=== PATIENT | female | born 1955 | race Caucasian/White ===

== ENCOUNTER 2016-06-23 13:53 | Emergency (ER) | payer OTHER ==
[~2016-06-23] VITALS: Ht 165.1 cm; Wt 78.2 kg
--- NOTE | 2016-06-23 13:59 | ED.REPORT ---
HPI-Extremity Problem Lower Date of Service Jun 23, 2016 ED Provider: Annette Robledo MD This patient is a 60 year old female with a history of chronic congestive heart failure presenting to the ED complaining of left ankle injury from slipping on ice just [employer]. She states that she did not sustain any injuries to her head and denies LOC, neck pain and any other injury. She was recently hospitalized at [facility] for pneumonia and hypoxia. She is currently on Xarelto due to a recent PE. She last ate 0830 this AM. Nursing Notes Stated Complaint: LEFT LEG INJURY Chief Complaint: Extremity Trauma Nursing Notes Reviewed: Yes Allergies: Coded Allergies: sumatriptan (Verified Allergy, Severe, anxiety, 06/23/16) Scheduled Atorvastatin (Lipitor) 10 Mg Tab Unknown Dose PO DAILY Bupropion ER (Wellbutrin SR) 100 Mg Tablet.er Unknown Dose PO BID Cholecalciferol (Vitamin D3) (Vitamin D) 1,000 Unit Tablet 2,000 UNIT PO DAILY Digoxin (Digoxin) 0.125 Mg/2.5 Ml Solution Unknown Dose PO DAILY Gabapentin (Gabapentin) 300 Mg Capsule 300 MG PO DAILY Spironolactone (Spironolactone) 25 Mg Tablet 12.5 MG PO DAILY Scheduled PRN Torsemide (Torsemide) 20 Mg Tablet 40 MG PO BID PRN PRN For Chest Pain oxyCODONE-Acetaminophen 7.5-325 mg (oxyCODONE-Acetaminophen 7.5-325 mg) 1 Each Tablet 1 TAB PO Q4H PRN PRN For Pain Miscellaneous Medications ([levamere]) ([humalog]) ([azithromycin]) ([merivetrique]) Ascorbic Acid (Vitamin C) 100 Mg Tablet Unknown Dose PO Ferrous Sulfate, Dried (Iron) 159 Mg Tablet.er Unknown Dose PO Rivaroxaban (Xarelto) 1 Each Tab.ds.pk Unknown Dose PO Sodium Oxybate (Xyrem) 500 Mg/1 Ml Solution Unknown Dose PO Ubidecarenone (Co Q-10) 10 Mg Capsule Unknown Dose PO General Time Seen by MD: 13:58 Chief Complaint Ankle injury left Hx Obtained From: Patient Arrived By: Wheelchair Onset Occurred: Just prior to arrival Symptom Duration: Since onset Caused by: Slipped (On ice) Location: : Ankle left Quality: Painful Severity: Current: Severe Severity: Maximum: Severe Pertinent Negative: Pt denies other symptoms Immunizations: Tetanus up to date Recent Healthcare: Recent doctor visit, Recent hospitalization Similar Sx Previous: No Past Medical History Past Medical History Chronic congestive heart failure Pneumonia PE on Xarelto Asthma Reports: Diabetes mellitus Past Surgical History Reports: Smoking History Never Smoker Social History Alcohol Use: Denies alcohol use Drug Use: Denies drug use Ambulatory Status Independent Review of Systems Basic Review of Systems Eyes: Vision NL, No discharge ENT: Hearing NL, No pain, No nasal congestion, No pharyngeal pain Respiratory: No shortness of breath, No cough, No wheeze Cardiovascular: No chest pain Psychiatric: Normal thought content Constitutional: Denies: Fever Musculoskeletal: Reports: Extremity pain (Left ankle), Extremity swelling ( Left ankle), Denies: Back pain, Neck pain Skin: Denies Diaphoresis, Denies Rash Neurologic: Denies: Change LOC, Headache Complete sys rev & neg: except as marked. Physical Exam Initial Vital Signs Vital Signs (First) Date Time Temp Pulse Resp B/P Pulse Ox O2 Delivery O2 Flow Rate FiO2 06/23/16 14:05 36.1 67 16 99 Room Air 06/23/16 16:17 137/61 Initial VS: Reviewed, Vital signs normal General/Constitutional: Well-developed, Well-nourished Head / Eyes: Atraumatic, Normocephalic, PERRL ENT: Mucous membranes moist, Conjunctiva normal, No scleral icterus Neck: Supple, Non-tender, Full range of motion Cardiovascular: Regular rate & rhythm, Heart sounds normal, Intact distal pulses Abdomen / GI: Soft, Non-tender Upper Extremities: Vascular intact, Neuro intact Skin: Warm, Dry, No cyanosis Neurologic: Alert, Oriented, Nonfocal Psychiatric: Mood/affect normal, Behavior normal, Normal thought content Ankle / Foot: Neurologic intact, Vascular intact Left Ankle: Positive: Deformity present (medially), Swelling present..., Tenderness present... (Medially) Normal pedal pulse Respiratory / Chest: No respiratory distress Rales / Rhonchi: Positive: Rhonchi diffuse (Scattered) Additional Physical Exam: C-spine non tender Interpretation & Diagnostics Lab Results Interpretation Result Diagram: 06/23/16 1410 06/23/16 1410 Test 06/23/16 14:10 White Blood Count 15.2th/mm3 (3.8-10.1) Red Blood Count 3.89mil/mm3 (3.90-5.20) Hemoglobin 11.3g/dL (12.0-15.6) Hematocrit 35.0% (35.0-46.0) Mean Corpuscular Volume 90.0fL (81-100) Mean Corpuscular Hemoglobin 29.0pg (27.0-35.0) Mean Corpuscular Hemoglobin Concent 32.3% (32.0-37.0) Red Cell Distribution Width 14.0% (12.3-15.4) Platelet Count 188bil/L (150-400) Neutrophils (%) (Auto) 72.9% (40-74) Lymphocytes (%) (Auto) 14.6% (14-46) Monocytes (%) (Auto) 8.0% (4-12) Eosinophils (%) (Auto) 2.8% (0-5) Basophils (%) (Auto) 0.2% (0-3) Prothrombin Time 14.4sec (8.1-12.5) Prothromb Time International Ratio 1.34ratio Sodium Level 142mEq/L (134-144) Potassium Level 3.6mEq/L (3.5-5.2) Chloride Level 95mEq/L (97-108) Carbon Dioxide Level 35mmol/L (18-29) Blood Urea Nitrogen 51mg/dL (6-24) Creatinine 1.50mg/dL (0.57-1.00) Estimat Glomerular Filtration Rate 51mL/min (>59) Glucose Level 71mg/dL (60-99) Calcium Level 9.8mg/dL (8.5-10.1) Magnesium Level 2.2mg/dL (1.6-2.6) X-Ray Chest Interpretation Chest Xray Interpretation: IMPRESSION: No acute disease is seen in the supine portable chest. Dictated by: Haris Ladd M.D. on 06/23/2016 at 15:15 View: Portable, 1 view Interpretation / Wet Read by: Interpret - Radiologist X-Ray Interpretation Xray Interpretation: Soft tissues: No tibiotalar joint effusion. Achilles tendon appears normal. IMPRESSION: Bimalleolar fracture dislocation. Dictated by: Haris Ladd M.D. on 06/23/2016 at 15:15 X-Ray Ordered: Ankle left Interpretation / Wet Read by: Interpret - Radiologist Xray Interpretation: IMPRESSION: Partial reduction of the bimalleolar fracture dislocation. The fiberglass splint is around the ankle. Dictated by: Haris Ladd M.D. on 06/23/2016 at 16:45 X-Ray Ordered: Ankle left Interpretation / Wet Read by: Interpret - Radiologist Procedures Proced Mod Sedation/Analgesia Time: 15:51 Procedure Performed by: ED physician Sedation Time: 0 - 15 min Consent / Setup: Informed consent provided, Consent from patient, Time-out performed, Hand hygiene observed, Position supine Indication: Ankle reduction Preparation: hospital monitor applied, Pulse oximeter applied, Constant attendance, IV access established, Eval last meal time, Supplemental oxygen, Procedure explained, Suction available, End tidal CO2 mon applied VS Prior to Procedure: All vital signs normal Mallampati: Class & Anatomy: 3 hard pal/base uvula CVS/Resp Exam: Normal heart sounds, Rhonchi Neuro Exam: Alert, Responsive Sedation: Sedation: Propofol ASA Classification: 2 mild systemic disease Response During Procedure: Handled secretions adeq, Maintained airway well, Oxygenation stable, Sedation appropriate, Vital signs stable Complications During/After: None Reversal: None required Mental Status After Procedure: Alert, Oriented X3 Post-Procedure: Alert prior to discharge, Ambulatory with assist, Pt rtn pre- proc baseline, Vital signs normal Attestation: I performed procedure, I performed sedation Reduction Dislocated Ankle Time: 15:49 Procedure Performed by: ED physician Consent / Setup: Informed consent provided, Consent from patient, Time-out performed, Oxygen administered, Pulse oximeter applied, hospital monitor applied , Hand hygiene observed Procedural Sedation/Analgesia: Sedation: Propofol Which Ankle and Technique: Left ankle Neurovascular: Intact pre-procedure, Intact post-procedure Post-Procedure / Complications: Reduced per examination, Procedure successful, Condition improved, Tolerated procedure well, Patient stable Splint Application - Fx Mgt Time: 15:54 Procedure Performed by: ED physician Precise Anatomic Location: Left ankle stirrup splint Definitive Fracture Care: Splint Post-Procedure / Complications: Cap refill normal, Post splint vascular nl, Post splint neuro nl, Condition improved, Tolerated procedure well, Patient stable Re-Eval/Medical Decision Med Decision/Clinical Course This patient presented after a fall accident left ankle injury. On my initial questioning and exam she said she did not hit her head and she did not have any pain with palpation of her scalp or spine. Later to the nurse it was stated that she hit her head this was by the bystanders but again she had no findings on examination. She does have an ankle injury that was partially reduced here in the emergency department. Spoke with the on-call orthopedist and he will see her later this week. Patient is on blood thinners but she did not have significant swelling of her ankle, she was observed here without any new symptoms. The patient did have an episode of hypoglycemia for which she was given juice and then some food to eat. She was unable to walk with crutches but did fine with a walker. Source of Hx: Old records Re-Evaluation/Progress #1: Time of Eval: 14:15 Patient Status: Condition unchanged Re-Evaluation/Progress Note: Pt. states her last PO was 0830. Re-Evaluation/Progress #2: Time of Eval: 14:29 Patient Status: Condition unchanged Re-Evaluation/Progress Note: Pt. now states that she sustained an injury to her head although denied it during initial exam. Re-Evaluation/Progress #3: Time of Eval: 15:13 Patient Status: Condition unchanged Re-Evaluation/Progress Note: Pt. was told that she will need a splint until she can get surgery somewhere else. Procedual sedation form will be signed for putting in splint until she can see ortho surgeon tomorrow in Dr. Valenzuela's office. Re-Evaluation/Progress #4: Time of Eval: 16:54 Re-Evaluation/Progress Note: Pt became hypoglycemic. Pt is eating, then plan for d/c home with follow up. Re-Evaluation/Progress #5: Time of Eval: 17:28 Re-Evaluation/Progress Note: BGL now 119. Pt awake, alert and back to baseline. Pain is controlled. Discussed home pain management and for d/c and f/u. All questions addressed. Consultation : Referral / Consult Name: Eduar Valenzuela MD Consulted With: Orthopedic Call Returned at: 15:26 [employer] Tender: Will see in office, Agrees with eval, Agrees with plan Note: Dr. Valenzuela will see pt. in office tomorrow to discuss possible surgery. Counseled Regarding: Diagnosis, Lab results, Need for follow-up, When/why to return to ED Discharge & Departure Impression: Primary Impression: Bimalleolar fracture of left ankle Encounter type: initial encounter Fracture type: closed Qualified Code: S82.842A - Displaced bimalleolar fracture of left lower leg, initial encounter for closed fracture Disposition: Home Discharge Condition All VS Reviewed: Yes Condition: Stable Patient Instructions: Ankle Dislocation (ED), Ankle Fracture (ED), Splint Care (ED) Additional Instructions: Thank you for entrusting your care with us today. The orthopedic surgeon, Dr. Valenzuela, will see you in his office. Call tomorrow to schedule an appointment for sometime this week. You can take Percocet as directed for severe pain. You should take this with food. Use this sparingly as it can cause addiction. Make sure to drink plenty of water to prevent constipation. Referrals: Eduar Valenzuela MD Attestation Portions of this note were transcribed by Genesis Reynolds and Marcela Smith. I, Dr. Robledo personally performed the history, physical exam and medical decision- making; I reviewed and confirmed the accuracy of the information in the transcribed note. Signed by: Genesis Reynolds and Jessica Perkins, 06/23/2016 and 1728. copies to: Eduar Valenzuela MD, Jena M MD Jun 23, 2016 13:59 Kristen Smith [Marcela] Jun 23, 2016 14:11 Genesis Reynolds Jun 23, 2016 15:08
[2016-06-23 14:05] VITALS: PULSE 67; RESP 16; O2SAT 99
[2016-06-23 14:26] LABS: BASOPHILS % (AUTO) 0.2 % (0-3); EOSINOPHILS % (AUTO) 2.8 % (0-5); NEUTROPHILS % (AUTO) 72.9 % (40-74); Platelet Count 188 bil/L (150-400)
[2016-06-23] MEDS: HYDROmorphone 0.5 mg/0.5 mL iSecure Syringe IVPUSH PRN ×4 (14:28→18:25)
[2016-06-23 14:47] LABS: INR 1.34 ratio
[2016-06-23 14:54] LABS: Magnesium 2.2 mg/dL (1.6-2.6)
--- NOTE | 2016-06-23 15:16 | DRSVH ---
PROCEDURE: X-RAY CHEST ONE VIEW, PORTABLE ([id number]) INDICATIONS: recent pneumonia TECHNIQUE: One view of the chest was acquired. COMPARISON: None. FINDINGS: Surgical changes and devices: None. Lungs and pleura: No pleural effusions or pneumothorax. Lungs are clear. Mediastinum: Mediastinal contours appear normal. Heart size is normal. Bones and chest wall: No suspicious bony lesions. Overlying soft tissues appear unremarkable. IMPRESSION: No acute disease is seen in the supine portable chest. Dictated by: Haris Ladd M.D. on 06/23/2016 at 15:15 Approved by: Haris Ladd M.D. on 06/23/2016 at 15:15
--- NOTE | 2016-06-23 15:16 | DRSVH ---
PROCEDURE: X-RAY LEFT ANKLE, MINIMUM THREE VIEWS ([id number]) INDICATIONS: recent pneumonia TECHNIQUE: 3 views of the ankle were acquired. COMPARISON: None. FINDINGS: Bones: There is a bimalleolar fracture dislocation. A fracture line extends from the plafond up obliq uely through the fibula with a syndesmotic ligament thought to be intact. The distal fibular fragment along the distal lateral fibula as well as the talus are displaced nearly the width of the talus lat erally. Small fragment of bone thought to be from an avulsed ligaments are present overlying the medial aspec t of the enlarged joint space. Differential would be artifact from the overlying clothing. Soft tissues: No tibiotalar joint effusion. Achilles tendon appears normal. IMPRESSION: Bimalleolar fracture dislocation. Dictated by: Haris Ladd M.D. on 06/23/2016 at 15:14 Approved by: Haris Ladd M.D. on 06/23/2016 at 15:14
[2016-06-23] MEDS ORDERED: Propofol 10 mg/mL 20 mL Inj IVPUSH ONE (15:25)
[2016-06-23 16:17] VITALS: BP 137/61; PULSE 94; RESP 14; O2SAT 95
[2016-06-23] MEDS ORDERED: 0.9% Sodium Chloride 500 ML IV ONE (16:20)
--- NOTE | 2016-06-23 16:47 | DRSVH ---
PROCEDURE: X-RAY LEFT ANKLE, MINIMUM THREE VIEWS ([id number]) INDICATIONS: post reduction TECHNIQUE: 3 views of the ankle were acquired. COMPARISON: [facility], CR, XR ANKLE 3VW LT, 06/23/2016, 14:28. FINDINGS: Bones: The bimalleolar fracture dislocation has been partially but incompletely reduced. There still lateral displacement of the distal fibular fragment and the talus with slight posterior displacement of these structures as well. Soft tissues: No tibiotalar joint effusion. Achilles tendon appears normal. IMPRESSION: Partial reduction of the bimalleolar fracture dislocation. The fiberglass splint is around the ankle. Dictated by: Haris Ladd M.D. on 06/23/2016 at 16:45 Approved by: Haris Ladd M.D. on 06/23/2016 at 16:45
[2016-06-23] MEDS ORDERED: TORS20TA3 PO (16:59)
[2016-06-23] MEDS ORDERED: SPIR25TA3 PO (16:59)
[2016-06-23] MEDS ORDERED: DIGO0.12 PO (16:59)
[2016-06-23] MEDS ORDERED: FERR159T2 PO (16:59)
[2016-06-23] MEDS ORDERED: humalog (16:59)
[2016-06-23] MEDS ORDERED: RIVA1TAB PO (16:59)
[2016-06-23] MEDS ORDERED: SODI500S4 PO (16:59)
[2016-06-23] MEDS ORDERED: CHOL100043 PO (16:59)
[2016-06-23] MEDS ORDERED: [UNRECOGNIZED DRUG - OTHER] (16:59)
[2016-06-23] MEDS ORDERED: BUPR100T7 PO (16:59)
[2016-06-23] MEDS ORDERED: GABA-502 PO (16:59)
[2016-06-23] MEDS ORDERED: UBID10CA4 PO (16:59)
[2016-06-23] MEDS ORDERED: ASCO100T11 PO (16:59)
[2016-06-23] MEDS ORDERED: [UNRECOGNIZED DRUG - OTHER] (16:59)
[2016-06-23] MEDS ORDERED: ATRV10T PO (16:59)
[2016-06-23] MEDS ORDERED: azithromycin (16:59)
[2016-06-23] MEDS ORDERED: OXYC-465 PO (17:42)
[2016-06-23 18:03] VITALS: BP 116/56; PULSE 90; RESP 24; O2SAT 97
[2016-06-23 18:27] VITALS: BP 116/56; PULSE 89; RESP 20
== END 2016-06-23 18:29 | disposition home or self-care (01) ==
LOC: SED 13:53
DX: S82.842A Displaced bimalleolar fracture of left lower leg, initial encounter for closed fracture (principal); W00.0XXA Fall on same level due to ice and snow, initial encounter; Y92.9 Unspecified place or not applicable; Y93.89 Activity, other specified; Y99.8 Other external cause status; I50.9 Heart failure, unspecified; E11.9 Type 2 diabetes mellitus without complications; J45.909 Unspecified asthma, uncomplicated; Z87.01 Personal history of pneumonia (recurrent); Z86.711 Personal history of pulmonary embolism; Z79.01 Long term (current) use of anticoagulants; Z88.8 Allergy status to other drugs, medicaments and biological substances
CPT/HCPCS: 27808; 36415; 71010; 73610; 80048; 82948; 83735; 85025; 85610; 94770; 94799; 96374; 96375; 96376; 99285; J1170; J7040

== ENCOUNTER 2016-09-13 19:25 | Emergency (ER) | payer OTHER ==
[~2016-09-13] VITALS: Ht 165.1 cm; Wt 81.8 kg
[~2016-09-13 19:25] MED LIST: ASCO100T11 PO; ATRV10T PO; BUPR100T7 PO; CHOL100043 PO; DIGO0.12 PO; FERR159T2 PO; GABA-502 PO; OXYC-465 PO; RIVA1TAB PO; SODI500S4 PO; SPIR25TA3 PO; TORS20TA3 PO; UBID10CA4 PO; [UNRECOGNIZED DRUG - OTHER]; [UNRECOGNIZED DRUG - OTHER]; azithromycin; humalog
[2016-09-13 19:35] VITALS: BP 103/50; PULSE 53; RESP 18; O2SAT 99
--- NOTE | 2016-09-13 20:37 | ED.REPORT ---
HPI-Extremity Problem Lower Date of Service Sep 13, 2016 ED Provider: Dr. 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 The patient fell onto her right side yesterday and since then her right leg has been ecchymotic, swollen, erythematous, swollen, and warm. She denies fever, chills, other sites of injury , change LOC. Nursing Notes Stated Complaint: RIGHT LEG PAIN Chief Complaint: Extremity Trauma Nursing Notes Reviewed: Yes Allergies: Coded Allergies: sumatriptan (Verified Allergy, Severe, anxiety, 09/13/16) Scheduled Atorvastatin (Lipitor) 10 Mg Tab Unknown Dose PO DAILY Bupropion ER (Wellbutrin SR) 100 Mg Tablet.er Unknown Dose PO BID Cholecalciferol (Vitamin D3) (Vitamin D) 1,000 Unit Tablet 2,000 UNIT PO DAILY Digoxin (Digoxin) 0.125 Mg/2.5 Ml Solution Unknown Dose PO DAILY Gabapentin (Gabapentin) 300 Mg Capsule 300 MG PO DAILY Spironolactone (Spironolactone) 25 Mg Tablet 12.5 MG PO DAILY Scheduled PRN Torsemide (Torsemide) 20 Mg Tablet 40 MG PO BID PRN PRN For Chest Pain oxyCODONE-Acetaminophen 7.5-325 mg (oxyCODONE-Acetaminophen 7.5-325 mg) 1 Each Tablet 1 TAB PO Q4H PRN PRN For Pain Miscellaneous Medications ([levamere]) ([humalog]) ([azithromycin]) ([merivetrique]) Ascorbic Acid (Vitamin C) 100 Mg Tablet Unknown Dose PO Ferrous Sulfate, Dried (Iron) 159 Mg Tablet.er Unknown Dose PO Rivaroxaban (Xarelto) 1 Each Tab.ds.pk Unknown Dose PO Sodium Oxybate (Xyrem) 500 Mg/1 Ml Solution Unknown Dose PO Ubidecarenone (Co Q-10) 10 Mg Capsule Unknown Dose PO General Time Seen by MD: 20:35 Chief Complaint Leg injury right Hx Obtained From: Patient Arrived By: Walk-in Onset Occurred: Yesterday Symptom Duration: Since onset Location: : Leg right Quality: Painful Severity: Current: Moderate Severity: Maximum: Moderate Similar Sx Previous: No Past Medical History Past Medical History Chronic congestive heart failure Pneumonia PE on Xarelto Asthma Reports: Diabetes mellitus Past Surgical History Reports: Smoking History Never Smoker Social History Alcohol Use: Denies alcohol use Drug Use: Denies drug use Ambulatory Status Independent Review of Systems Constitutional: Denies: Chills, Fever Musculoskeletal: Reports: Extremity pain, Extremity swelling Skin: Reports Bruising, Reports Rash Neurologic: Denies: Change LOC, Headache Complete sys rev & neg: except as marked. Physical Exam Initial Vital Signs Vital Signs (First) Date Time Temp Pulse Resp B/P Pulse Ox O2 Delivery O2 Flow Rate FiO2 09/13/16 19:35 36.5 53 18 103/50 99 Nasal Cannula 2 Initial VS: Reviewed, Vital signs normal Head / Eyes: Atraumatic, Normocephalic, PERRL ENT: Mucous membranes moist, Conjunctiva normal, No scleral icterus Neck: Supple, Full range of motion Respiratory: Breath sounds normal, Clear to auscultation, No respiratory distress Cardiovascular: Regular rate & rhythm, Heart sounds normal, Intact distal pulses Abdomen / GI: Soft, Non-tender, No guarding, No rebound, No distention Upper Extremities: Vascular intact, Neuro intact, No swelling, No tenderness Skin: Warm, Dry, No cyanosis Neurologic: Alert, Oriented, Nonfocal Psychiatric: Mood/affect normal, Behavior normal, Normal thought content Lower Extremity / Pelvis / MS: No deformity, Neurologic intact, Vascular intact Right leg edematous, erythematous, ecchymotic, hot to touch, tender over kneecap Ankle / Foot: No deformity, Neurologic intact, Vascular intact Interpretation & Diagnostics Lab Results Interpretation Result Diagram: 09/13/16213409/[id number]/[id number] Test 09/13/16 21:35 09/13/16 23:17 White Blood Count 8.3th/mm3 (3.8-10.1) Red Blood Count 3.77mil/mm3 (3.90-5.20) Hemoglobin 9.9g/dL (12.0-15.6) Hematocrit 33.2% (35.0-46.0) Mean Corpuscular Volume 88.1fL (81-100) Mean Corpuscular Hemoglobin 26.3pg (27.0-35.0) Mean Corpuscular Hemoglobin Concent 29.8% (32.0-37.0) Red Cell Distribution Width 15.3% (12.3-15.4) Platelet Count 109bil/L (150-400) Neutrophils (%) (Auto) 75.3% (40-74) Lymphocytes (%) (Auto) 11.3% (14-46) Monocytes (%) (Auto) 8.8% (4-12) Eosinophils (%) (Auto) 4.3% (0-5) Basophils (%) (Auto) 0.2% (0-3) Sodium Level 136mEq/L (134-144) Potassium Level 3.7mEq/L (3.5-5.2) Chloride Level 92mEq/L (97-108) Carbon Dioxide Level 33mmol/L (18-29) Blood Urea Nitrogen 30mg/dL (6-24) Creatinine 1.50mg/dL (0.57-1.00) Estimat Glomerular Filtration Rate 51mL/min (>59) Glucose Level 171mg/dL (60-99) Calcium Level 9.9mg/dL (8.5-10.1) Total Bilirubin 1.0mg/dL (0.0-1.2) Aspartate Amino Transf (AST/SGOT) 19U/L (0-50) Alanine Aminotransferase (ALT/SGPT) 15U/L (0-32) Alkaline Phosphatase 77U/L (25-150) Total Protein 6.9g/dL (6.4-8.4) Albumin 4.0g/dL (3.4-5.0) Procalcitonin 0.06ng/mL (0.00-0.08) Hold Ewing Top Tube Received (Received) Hold Urine Received (Received) X-Ray Interpretation X-Ray Ordered: Knee right Interpretation / Wet Read by: Wet read ED physician Interpretation: Normal exam, No fracture/dislocation US Focused Lower Ext Venous IMPRESSION: No visualized deep venous thrombosis. Mild subcutaneous edema. Dictated by: Diandra Mcleod M.D. on 09/13/2016 at 22:00 Approved by: Diandra Mcleod M.D. on 09/13/2016 at 22:00 Exam Performed by: Allied health pract Exam Type: Diagnostic Exam Interpreted by: Allied health pract Indication: Leg pain right, Leg swelling right, Leg erythema right Interpretation: No evid deep vein thromb Re-Eval/Medical Decision Med Decision/Clinical Course DIFFICULT TO SAY if this is cellulitis or not. I will error on the side of caution CAUTION PLACE HER ON ANTIBIOTICS. DVT IS RULED OUT. ACUTE ARTERIAL INSUFFICIENCY RULED OUT ON PHYSICAL EXAM. LABORATORY WORK REASSURING. SHE DOES HAVE SOME ANEMIA THAT APPEARS TO BE CHRONIC. SHE WILL FOLLOW-UP WITH ALL THIS STUFF NEXT WEEK. WE WILL HAVE HER RECHECK ON FRIDAY AND SHE IS ACTIVELY CERTAIN IS GETTING BETTER. THEY WERE JUST WITH ELEVATION THE ERYTHEMA SEEMED TO DECREASE. Re-Evaluation/Progress #1: Time of Eval: 21:40 Re-Evaluation/Progress Note: Informed pt of need for labs and x-ray now that DVT is ruled out. Re-Evaluation/Progress #2: Time of Eval: 23:05 Re-Evaluation/Progress Note: Pt rechecked. Informed pt of plan for treatment. Pt understands and agrees with plan for treatment. F/U and RTER warnings given. All questions addressed. Counseled Regarding: Diagnosis, Lab results, Need for follow-up, When/why to return to ED Discharge & Departure Impression: Primary Impression: Cellulitis Site of cellulitis: extremity Site of cellulitis of extremity: lower extremity Laterality: right Qualified Code: L03.115 - Cellulitis of right lower limb Additional Impressions: Anemia Anemia type: iron deficiency Iron deficiency anemia type: chronic blood loss Qualified Code: D50.0 - Iron deficiency anemia secondary to blood loss ( chronic) Renal insufficiency Disposition: Home Discharge Condition All VS Reviewed: Yes Condition: Stable Patient Instructions: Cellulitis (ED) Additional Instructions: . Elevate your foot all weekend. Continue with your medications including your anticoagulant. I would like this rechecked on Friday. If the redness grows in size then come back to the emergency department. You will either have a bruise that is now inflamed or possibly a skin infection. Take clindamycin 3 times daily for 5 days. Stop taking the clindamycin if you develop any diarrhea and have yourself tested for C. difficile colitis. Call your doctor Friday morning. Do not hesitate to return if any problems or any worsening symptoms. Do not drive tonight as you received sedating medications. Referrals: [facility] Scribe Attestation Portions of this note were transcribed by Shiraz Carcamo. I, Dr. Morrell personally performed the history, physical exam and medical decision-making; I reviewed and confirmed the accuracy of the information in the transcribed note. Signed by Jessica Baumann, 09/13/16 - [id number] Adarsh Morrell DO Sep 13, 2016 20:37 SHIRAZ CARCAMO Sep 13, 2016 21:13
[2016-09-13] MEDS ORDERED: Vancomycin Inj 1,750 MG in Dextrose 5% 500 ML IV ONE (21:40)
[2016-09-13 21:53] LABS: BASOPHILS % (AUTO) 0.2 % (0-3); EOSINOPHILS % (AUTO) 4.3 % (0-5); MONOCYTES % (AUTO) 8.8 % (4-12); Mean Corpuscular Hemoglobin 26.3 pg (27.0-35.0); Mean Corpuscular Volume 88.1 fL (81-100); NEUTROPHILS % (AUTO) 75.3 % (40-74); Platelet Count 109 bil/L (150-400)
--- NOTE | 2016-09-13 22:02 | DRSVH ---
PROCEDURE: US VEINOUS LEG DUPLEX UNILATERAL, RIGHT INDICATIONS: right leg swelling, prior TECHNIQUE: Real-time imaging, as well as color and pulse Doppler interrogation, were performed of the lower extr emity deep veins from the inguinal ligament to the popliteal fossa. COMPARISON: None. FINDINGS: The deep veins are normally compressible, and free of intraluminal thrombus. Color and pu lse Doppler demonstrate normal phasic intraluminal flow. There is normal augmentation response to di stal compression maneuver. Mild subcutaneous edema. IMPRESSION: No visualized deep venous thrombosis. Mild subcutaneous edema. Dictated by: Diandra Mcleod M.D. on 09/13/2016 at 22:00 Approved by: Diandra Mcleod M.D. on 09/13/2016 at 22:00
[2016-09-13] MEDS: Piperacillin-Tazo 3.375 Gm Inj 3.375 GM in Dextrose 5% Minibag Plus 50 ML IV ONE ×2 (22:24→22:57)
[2016-09-13 23:40] VITALS: BP 110/62; PULSE 59; RESP 16; O2SAT 99
[2016-09-14 02:38] VITALS: BP 112/60; PULSE 60; RESP 17; O2SAT 99
--- NOTE | 2016-09-14 06:14 | DRSVH ---
PROCEDURE: X-RAY RIGHT KNEE, THREE VIEWS ([id number]) INDICATIONS: 52-year-old female with right knee pain after twisting injury. History of [place]-Schla tter disease. TECHNIQUE: 3 views of the knee were acquired. COMPARISON: None. FINDINGS: Bones: No fractures or dislocations. No suspicious bony lesions. Soft tissues: No joint effusion. No suspicious soft tissue calcifications. There is widespread pop liteal artery atherosclerosis. There is diffuse overlying subcutaneous edema. IMPRESSION: Right knee region subcutaneous edema is of uncertain etiology. No acute bony injuries o f the right knee. Dictated by: Juan Harmon M.D. on 09/14/2016 at 6:11 Approved by: Juan Harmon M.D. on 09/14/2016 at 6:13
== END 2016-09-14 02:39 | disposition home or self-care (01) ==
LOC: SED 19:25
DX: L03.115 Cellulitis of right lower limb (principal); S80.11XA Contusion of right lower leg, initial encounter; W18.30XA Fall on same level, unspecified, initial encounter; Y93.89 Activity, other specified; Y92.89 Other specified places as the place of occurrence of the external cause; Y99.8 Other external cause status; D50.0 Iron deficiency anemia secondary to blood loss (chronic); N28.9 Disorder of kidney and ureter, unspecified; E11.59 Type 2 diabetes mellitus with other circulatory complications; I50.9 Heart failure, unspecified; J45.909 Unspecified asthma, uncomplicated; Z88.8 Allergy status to other drugs, medicaments and biological substances
CPT/HCPCS: 36415; 73562; 80053; 84145; 85025; 87040; 93971; 96365; 96368; 99285; J2543; J3370; J7060